=== PATIENT | female | born 1985 | race Caucasian/White ===

== ENCOUNTER 2017-03-22 13:55 | Outpatient (CLI) | payer MEDICAID ==
[2017-03-25 10:24] LABS: DAU SCREEN DISCLAIMER
== END 2017-03-22 17:03 | disposition home or self-care (01) ==
LOC: LDOP 13:55
PROVIDERS: ATTEND Specialist
DX: O26.893 Other specified pregnancy related conditions, third trimester (principal); R10.9 Unspecified abdominal pain; Z3A.39 39 weeks gestation of pregnancy
CPT/HCPCS: 59025; 80307; 87081; 99211; G0463

== ENCOUNTER 2017-04-10 20:45 | Outpatient (CLI) | payer MEDICAID ==
[~2017-04-10] VITALS: Ht 165.1 cm; Wt 72.7 kg
[2017-04-10 21:27] LABS: DAU SCREEN DISCLAIMER
[2017-04-10 21:35] VITALS: BP 127/76
[2017-04-10] MEDS ORDERED: PREN-59 PO (21:49)
== END 2017-04-10 22:33 | disposition home or self-care (01) ==
LOC: LDOP 20:45
PROVIDERS: ATTEND Specialist
DX: O42.92 Full-term premature rupture of membranes, unspecified as to length of time between rupture and onset of labor (principal); O26.893 Other specified pregnancy related conditions, third trimester; R10.9 Unspecified abdominal pain; Z3A.37 37 weeks gestation of pregnancy
CPT/HCPCS: 59025; 80307; 81001; 87086; 89060; 99211; G0463; Q0114

== ENCOUNTER 2017-04-14 01:06 | Inpatient (IN) | payer MEDICAID ==
[~2017-04-14] VITALS: Ht 165.1 cm; Wt 73.0 kg
[~2017-04-14 01:06] MED LIST: PREN-59 PO
[2017-04-14] MEDS ORDERED: OXYTOCIN 30U/ 0.9% NaCL 500ML 500 ML IV ONE (01:21)
[2017-04-14] MEDS ORDERED: D5%-LACTATED RINGERS 1,000 ML IV SCH (01:21)
[2017-04-14] MEDS: LACTATED RINGERS 1,000 ML IV SCH ×4 (01:28→07:52)
[2017-04-14] MEDS ORDERED: ONDANSETRON 2MG/ML, 2ML IVPush PRN (01:30)
[2017-04-14] MEDS ORDERED: CALCIUM CARBONATE 500 MG TAB.CHEW PO PRN ×2 (01:30→08:30)
[2017-04-14] MEDS ORDERED: FENTANYL PF 100 MCG/2ML IVPush PRN (01:30)
[2017-04-14] MEDS ORDERED: TERBUTALINE 1 MG/ML, 1ML IVPush PRN (01:30)
[2017-04-14] MEDS ORDERED: FENTANYL PF 100 MCG/2ML IV PRN (01:30)
[2017-04-14] MEDS ORDERED: LIDOCAINE 1%, 20ML ONE ×2 (01:34→07:00)
[2017-04-14] MEDS ORDERED: MISOPROSTOL 200 MCG TABLET ONE ×2 (01:35→07:00)
[2017-04-14] MEDS ORDERED: OXYTOCIN 30U/ 0.9% NaCL 500ML 0 ML ONE (01:35)
[2017-04-14] MEDS ORDERED: NEWBORN KIT ONE (01:35)
[2017-04-14] MEDS ORDERED: LIDOCAINE/PF 1.5%-EPI 1:200K, 30ML ONE ×2 (02:08→02:15)
[2017-04-14] MEDS ORDERED: FENTANYL/BUPIV./NS/PF 250 ML EPIDCONT ONE ×2 (02:08→02:15)
[2017-04-14] MEDS ORDERED: FENTANYL/BUPIV./NS/PF 250 ML EPIDCONT SCH (02:34)
[2017-04-14] MEDS ORDERED: EPHEDRINE 50 MG/ML, 1ML ONE (02:56)
[2017-04-14] MEDS ORDERED: LACTATED RINGERS 1,000 ML IVBOLUS PRN (03:00)
[2017-04-14 03:23] LABS: DAU SCREEN DISCLAIMER
[2017-04-14] MEDS ORDERED: OXYTOCIN 30U/ 0.9% NaCL 500ML 500 ML ONE ×2 (07:01→09:59)
[2017-04-14] MEDS ORDERED: ONDANSETRON 2MG/ML, 2ML IV PRN (08:30)
[2017-04-14] MEDS ORDERED: DOCUSATE 100 MG CAPSULE PO PRN (08:30)
[2017-04-14] MEDS ORDERED: MISOPROSTOL 200 MCG TABLET PR PRN (08:30)
[2017-04-14] MEDS ORDERED: METHYLERGONOVINE 0.2 MG/ML IM PRN (08:30)
[2017-04-14] MEDS ORDERED: CARBOPROST TROMETHAMINE 250 MCG/ML, 1ML IM PRN (08:30)
[2017-04-14] MEDS ORDERED: IBUPROFEN 600 MG TABLET ONE (08:34)
[2017-04-14] MEDS: IBUPROFEN 600 MG TABLET PO PRN ×2 (08:36→16:49)
[2017-04-14] MEDS ORDERED: PRENATAL VIT/IRON/FA 1 EACH TABLET PO SCH (09:00)
[2017-04-14] MEDS: OXYTOCIN 30U/ 0.9% NaCL 500ML 500 ML IV SCH ×2 (10:28→18:20)
[2017-04-14] MEDS ORDERED: ALBUTEROL IH PRN (10:30)
[2017-04-14 11:00] VITALS: BP 115/60
[2017-04-14 16:00] VITALS: BP 114/66
[2017-04-14 20:00] VITALS: BP 115/62
[2017-04-14] MEDS: HYDROcodone/APAP 5/325 TABLET PO PRN (20:59)
[2017-04-15 00:05] VITALS: BP 121/76
[2017-04-15] MEDS: OXYTOCIN 30U/ 0.9% NaCL 500ML 500 ML IV SCH (04:20)
[2017-04-15 05:00] VITALS: BP 119/83
[2017-04-15] MEDS ORDERED: DIPH,PERTUSS(ACELL),TET VAC/PF NC IM-VACC ONE (06:30)
[2017-04-15 06:50] VITALS: BP 113/77
[2017-04-15] MEDS: HYDROcodone/APAP 5/325 TABLET PO PRN (08:42)
[2017-04-15] MEDS: IBUPROFEN 600 MG TABLET PO PRN (08:42)
[2017-04-15] MEDS ORDERED: IBUP-1222 PO (09:44)
[2017-04-15] MEDS ORDERED: DOCU-30 PO (09:45)
[2017-04-15] MEDS ORDERED: FERR324T5 PO (09:45)
== END 2017-04-15 11:17 | disposition home or self-care (01) | DRG 775 ==
LOC: LAB 01:06 → LDIP 01:13 → 2NW 10:30
PROVIDERS: ADMIT Specialist; ATTEND Specialist
PROC: 10E0XZZ Delivery of Products of Conception, External Approach (ICD-10-PCS; principal; 2017-04-14)
PROC: 10907ZC Drainage of Amniotic Fluid, Therapeutic from Products of Conception, Via Natural or Artificial Opening (ICD-10-PCS; 2017-04-14)
PROC: 00HU33Z Insertion of Infusion Device into Spinal Canal, Percutaneous Approach (ICD-10-PCS; 2017-04-14)
PROC: 3E0R3CZ (ICD-10-PCS; 2017-04-14)
DX: O99.52 Diseases of the respiratory system complicating childbirth (principal); Z37.0 Single live birth; O99.334 Smoking (tobacco) complicating childbirth; Z3A.38 38 weeks gestation of pregnancy; Z88.0 Allergy status to penicillin; J45.909 Unspecified asthma, uncomplicated; O99.344 Other mental disorders complicating childbirth; F53 Mental and behavioral disorders associated with the puerperium, not elsewhere classified
CPT/HCPCS: 36415; 80307; 85025; 86850; 86900; 90715; J3490; J2590; J3010; J7120

== ENCOUNTER 2018-06-04 13:07 | Emergency (ER) | payer MEDICAID ==
[~2018-06-04] VITALS: Ht 165.1 cm; Wt 52.0 kg
[~2018-06-04 13:07] MED LIST changes: +DOCU-131 PO; +FERR324T5 PO; +IBUP-1222 PO
[2018-06-04] MEDS ORDERED: KETOROLAC 30 MG/1 ML ONE (13:44)
[2018-06-04] MEDS ORDERED: ONDANSETRON 2MG/ML, 2ML ONE (13:44)
[2018-06-04] MEDS ORDERED: MORPHINE SULFATE 4 MG/ML, 1ML ONE (13:45)
[2018-06-04] MEDS ORDERED: KETOROLAC 30 MG/1 ML IVPush ONE (14:00)
[2018-06-04] MEDS ORDERED: ONDANSETRON 2MG/ML, 2ML IVPush ONE (14:00)
[2018-06-04] MEDS ORDERED: SODIUM CHLORIDE 0.9% 1,000ML IVBOLUS ONE (14:00)
[2018-06-04] MEDS ORDERED: MORPHINE SULFATE 4 MG/ML, 1ML IVPush PRN (14:00)
[2018-06-04 14:03] LABS: BASOPHILS # (AUTO) 0.03 x10^3/uL (0-0.1); BASOPHILS % (AUTO) 0 % (0-1); EOSINOPHILS # (AUTO) 0.02 x10^3/uL (0-0.4); EOSINOPHILS % (AUTO) 0 % (1-7); LYMPHOCYTES # (AUTO) 1.04 x10^3/uL (1-3.4); LYMPHOCYTES % (AUTO) 8 % (22-44); MD NO; MEAN CORPUSCULAR HEMOGLOBIN 24.6 pg (27.0-34.8); MEAN CORPUSCULAR HGB CONC 32.4 g/dL (32.4-35.8); MEAN CORPUSCULAR VOLUME 75.8 fL (80-100); MONOCYTES # (AUTO) 1.14 x10^3/uL (0.2-0.8); MONOCYTES % (AUTO) 8 % (2-9); NEUTROPHILS # (AUTO) 11.54 x10^3/uL (1.8-6.8); NEUTROPHILS % (AUTO) 84 % (42-75); PLATELET COUNT 485 x10^3/uL (130-400); RED BLOOD COUNT 4.99 x10^6/uL (3.82-5.3); RED CELL DISTRIBUTION WIDTH 16.8 % (9.6-15.2)
[2018-06-04 14:09] LABS: ALANINE AMINOTRANSFERASE 43 U/L (12-78); ALBUMIN 3.3 g/dL (3.4-5.0); ANION GAP 7 mmol/L (5-15); CALCIUM 8.5 mg/dL (8.5-10.1); CHLORIDE 105 mmol/L (98-107); CREATININE 0.75 mg/dL (0.55-1.02)
[2018-06-04 14:10] LABS: CULTURE INDICATED? YES; MICROSCOPIC INDICATED
[2018-06-04 14:13] LABS: ALKALINE PHOSPHATASE 105 U/L (45-117); BILIRUBIN,TOTAL 0.3 mg/dL (0.2-1.0); TOTAL PROTEIN 7.9 g/dL (6.4-8.2)
[2018-06-04] MEDS ORDERED: CIPROFLOXACIN/PMX 400MG/200ML 200 ML ONE (14:53)
[2018-06-04] MEDS ORDERED: CIPROFLOXACIN/PMX 400MG/200ML 200 ML IV ONE (15:00)
[2018-06-04 15:34] VITALS: BP 107/73
== END 2018-06-04 15:38 | disposition home or self-care (01) ==
LOC: ED 13:57
DX: N30.01 Acute cystitis with hematuria (principal); N10 Acute pyelonephritis
CPT/HCPCS: 36415; 76770; 80053; 81001; 84702; 85025; 87077; 87086; 96365; 96375; 99285; J0744; J1885; J2405; J7030; 87186

== ENCOUNTER 2021-05-06 21:39 | Emergency (ER) | payer MEDICAID ==
[~2021-05-06] VITALS: Ht 165.1 cm; Wt 64.1 kg
[2021-05-06 21:47] VITALS: BP 109/82
[2021-05-06 22:47] LABS: MICROSCOPIC INDICATED
--- NOTE | 2021-05-06 22:58 | NUR ---
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
[2021-05-06] MEDS ORDERED: CEFDINIR 300 MG CAPSULE PO ONE (23:30)
[2021-05-06] MEDS ORDERED: SULFAMETH./TRIMETHOPRIM DS 800MG/160MG TABLET PO ONE (23:30)
[2021-05-06] MEDS ORDERED: SULFAMETH./TRIMETHOPRIM DS 800MG/160MG TABLET ONE (23:37)
[2021-05-06] MEDS ORDERED: CEFDINIR 300 MG CAPSULE ONE (23:37)
== END 2021-05-07 00:16 | disposition home or self-care (01) ==
LOC: ED 23:30
DX: N30.01 Acute cystitis with hematuria (principal); L03.116 Cellulitis of left lower limb; J45.909 Unspecified asthma, uncomplicated; F17.200 Nicotine dependence, unspecified, uncomplicated
CPT/HCPCS: 81001; 87077; 87086; 87186; 99283